=== PATIENT | female | born 1950 | race Caucasian/White ===

== ENCOUNTER 2022-05-19 11:00 | Day surgery (SDC) | payer MEDICARE ==
[2022-05-18 09:46] LABS: BASOPHILS # (AUTO) 0.1 X10'3 (0-0.2); EOSINOPHILS # (AUTO) 0.4 X10'3 (0-0.9); EOSINOPHILS % (AUTO) 5.4 % (0-6); HEMATOCRIT 40.5 % (35.0-45.0); HEMOGLOBIN 13.6 g/dl (12.0-16.0); LYMPHOCYTES # (AUTO) 1.5 X10'3 (1.1-4.8); LYMPHOCYTES % (AUTO) 19.1 % (21-51); MEAN CORPUSCULAR HEMOGLOBIN 31.1 PG (27.0-31.0); MEAN CORPUSCULAR HGB CONC 33.4 g/dL (33.0-36.5); MEAN CORPUSCULAR VOLUME 93.1 FL (78-98); MEAN PLATELET VOLUME 7.9 FL (7.4-10.4); MONOCYTES # (AUTO) 0.6 X10'3 (0-0.9); MONOCYTES % (AUTO) 7.5 % (2-12); NEUTROPHILS # (AUTO) 5.1 X10'3 (1.8-7.7); PLATELET COUNT 341 X10'3 (140-440); RED BLOOD COUNT 4.35 X10'6 (4.20-5.60); RED CELL DISTRIBUTION WIDTH 14.2 % (11.5-14.5); WHITE BLOOD COUNT 7.6 X10'3 (4.5-11.0)
[2022-05-18 09:54] LABS: ALBUMIN 3.5 G/DL (3.4-5.0); ANION GAP 8 (8-16); BLOOD UREA NITROGEN 28 MG/DL (7-18); BUN/CREATININE RATIO 23.1 (6.6-38.0); CALCIUM 9.6 MG/DL (8.5-10.1); CHLORIDE 104 MMOL/L (99-107); CREATININE 1.21 MG/DL (0.40-0.90); GLUCOSE 96 MG/DL (70-104); POTASSIUM 4.4 MMOL/L (3.5-5.1); SODIUM 138 MMOL/L (135-145); TOTAL CARBON DIOXIDE 26.1 MMOL/L (24-32); eGFR 44 ML/MIN
[~2022-05-19] VITALS: Ht 160 cm; Wt 77.2 kg
[2022-05-19] VITALS (11 sets, daily range): BP systolic 105–141; BP diastolic 53–69
[~2022-05-19 11:00] MED LIST: ASPI-611 PO; ATOR20TA PO; LOP25T PO; VALS1TAB4 PO
[2022-05-19] MEDS ORDERED: LORazepam 0.5 MG tablet PO ONE (11:20)
[2022-05-19] MEDS ORDERED: diphenhydrAMINE 25mg capsule PO ONE (11:20)
[2022-05-19] MEDS ORDERED: amiodarone 150mg/dext, iso-os 100 ML IV ONE (11:20)
[2022-05-19] MEDS ORDERED: atropine 0.1mg/ml 10ml syringe IV ONE (11:20)
[2022-05-19] MEDS ORDERED: WARF3TAB56 PO (11:52)
[2022-05-19] MEDS ORDERED: WARF1TAB83 PO (11:52)
[2022-05-19] MEDS ORDERED: CARV6.253 PO (11:55)
[2022-05-19] MEDS ORDERED: ATOR20TA66 PO (11:55)
[2022-05-19] MEDS ORDERED: AMIO200T61 PO (11:55)
[2022-05-19] MEDS ORDERED: LOSA1TAB41 PO (11:55)
[2022-05-19] MEDS ORDERED: OSC500T PO (11:56)
[2022-05-19] MEDS ORDERED: MV-M1TAB19 PO (12:03)
[2022-05-19] MEDS: morphine 10mg/ml inj. IV ONE (12:25)
[2022-05-19] MEDS: MIDAZolam 1mg/ml 10ml vial IV ONE (12:25)
== END 2022-05-19 13:35 | disposition home or self-care (01) ==
LOC: SSTAY O 11:00
PROVIDERS: ATTEND Internal Medicine Cardiovascular Disease
DX: I48.0 Paroxysmal atrial fibrillation (principal); I49.5 Sick sinus syndrome; E03.9 Hypothyroidism, unspecified; E78.5 Hyperlipidemia, unspecified; I25.10 Atherosclerotic heart disease of native coronary artery without angina pectoris; I27.20 Pulmonary hypertension, unspecified; Z79.899 Other long term (current) drug therapy; Z98.890 Other specified postprocedural states; I10 Essential (primary) hypertension
CPT/HCPCS: 36415; 80048; 85025; 85610; 92960; 93005; J2250; J2274; J7030; A4620

== ENCOUNTER 2022-09-14 05:55 | Day surgery (SDC) | payer MEDICARE ==
[2022-09-13 09:30] LABS: BASOPHILS # (AUTO) 0.1 X10'3 (0-0.2); BASOPHILS % (AUTO) 0.8 % (0-1); EOSINOPHILS # (AUTO) 0.4 X10'3 (0-0.9); EOSINOPHILS % (AUTO) 4.9 % (0-6); HEMOGLOBIN 13.4 g/dl (12.0-16.0); LYMPHOCYTES # (AUTO) 1.4 X10'3 (1.1-4.8); LYMPHOCYTES % (AUTO) 16.9 % (21-51); MEAN CORPUSCULAR HGB CONC 33.5 g/dL (33.0-36.5); MEAN CORPUSCULAR VOLUME 92.5 FL (78-98); MEAN PLATELET VOLUME 7.3 FL (7.4-10.4); MONOCYTES # (AUTO) 0.6 X10'3 (0-0.9); MONOCYTES % (AUTO) 6.9 % (2-12); NEUTROPHILS # (AUTO) 5.9 X10'3 (1.8-7.7); NEUTROPHILS % (AUTO) 70.5 % (42-75); PLATELET COUNT 347 X10'3 (140-440); RED BLOOD COUNT 4.32 X10'6 (4.20-5.60); RED CELL DISTRIBUTION WIDTH 13.6 % (11.5-14.5); WHITE BLOOD COUNT 8.4 X10'3 (4.5-11.0)
[2022-09-13 09:32] LABS: APTT 30 SECONDS (22-32)
[2022-09-13 09:43] LABS: BLOOD UREA NITROGEN 24 MG/DL (7-18); BUN/CREATININE RATIO 19.4 (10.0-20.0); CREATININE 1.24 MG/DL (0.40-0.90); eGFR 42 ML/MIN
[2022-09-13 09:57] LABS: ALBUMIN 3.6 G/DL (3.4-5.0); ANION GAP 6 (8-16); CALCIUM 9.3 MG/DL (8.5-10.1); CHLORIDE 104 MMOL/L (99-107); GLUCOSE 103 MG/DL (70-104); POTASSIUM 4.2 MMOL/L (3.5-5.1); SODIUM 139 MMOL/L (135-145); TOTAL CARBON DIOXIDE 29.5 MMOL/L (24-32)
[~2022-09-14] VITALS: Ht 160 cm; Wt 79.3 kg
[2022-09-14] VITALS (13 sets, daily range): BP systolic 118–176; BP diastolic 55–109
[~2022-09-14 05:55] MED LIST changes: +AMIO200T61 PO; -ATOR20TA PO; +ATOR20TA66 PO; +CARV6.253 PO; -LOP25T PO; +LOSA1TAB41 PO; +MV-M1TAB19 PO; +OSC500T PO; -VALS1TAB4 PO; +WARF1TAB83 PO; +WARF3TAB56 PO
[2022-09-14] MEDS ORDERED: LEVO50TA8 PO (06:20)
[2022-09-14] MEDS ORDERED: VITAMIN D3 PO (06:20)
[2022-09-14] MEDS ORDERED: ceFAZolin 1000mg inj ONE (07:41)
[2022-09-14] MEDS ORDERED: LIDOCAINE 2%/EPI 1:100,000 inj. Multi-dose 20 ML VIAL ONE (07:41)
[2022-09-14] MEDS ORDERED: fentaNYL/PF 50MCG/1 ML 2ML syringe ONE (07:41)
[2022-09-14] MEDS ORDERED: midazolam 1 mg/ML 2ml injection ONE (07:41)
[2022-09-14] MEDS: cefazolin 2gm/D5W 100mL 100 ML IV ONE (08:10)
[2022-09-14] MEDS: vancomycin/NS 1 GM ADD-VANTAGE 250 ML X 1 DOSE IV ONE (11:25)
== END 2022-09-14 15:40 | disposition home or self-care (01) ==
LOC: SSTAY O 05:55
PROVIDERS: ATTEND Internal Medicine Cardiovascular Disease
DX: I49.5 Sick sinus syndrome (principal); I48.0 Paroxysmal atrial fibrillation; I10 Essential (primary) hypertension; E78.5 Hyperlipidemia, unspecified; I27.20 Pulmonary hypertension, unspecified; Z79.899 Other long term (current) drug therapy; Z98.890 Other specified postprocedural states
CPT/HCPCS: 33208; 36415; 71046; 80048; 85025; 85610; 85730; 93005; 99152; 99153; C1786; C1898; J0690; J2250; J3010; J3370; J7030; A4565; A6449

== ENCOUNTER 2023-01-13 06:58 | Day surgery (SDC) | payer MEDICARE ==
[2023-01-12 10:14] LABS: BASOPHILS # (AUTO) 0.1 X10'3 (0-0.2); BASOPHILS % (AUTO) 0.7 % (0-1); EOSINOPHILS # (AUTO) 0.7 X10'3 (0-0.9); EOSINOPHILS % (AUTO) 7.4 % (0-6); HEMATOCRIT 39.6 % (35.0-45.0); HEMOGLOBIN 13.5 g/dl (12.0-16.0); LYMPHOCYTES # (AUTO) 1.5 X10'3 (1.1-4.8); LYMPHOCYTES % (AUTO) 17.4 % (21-51); MEAN CORPUSCULAR HEMOGLOBIN 31.4 PG (27.0-31.0); MEAN CORPUSCULAR VOLUME 92.3 FL (78-98); MONOCYTES # (AUTO) 0.7 X10'3 (0-0.9); MONOCYTES % (AUTO) 8.1 % (2-12); NEUTROPHILS # (AUTO) 5.9 X10'3 (1.8-7.7); NEUTROPHILS % (AUTO) 66.4 % (42-75); PLATELET COUNT 310 X10'3 (140-440); RED BLOOD COUNT 4.29 X10'6 (4.20-5.60); RED CELL DISTRIBUTION WIDTH 14.3 % (11.5-14.5); WHITE BLOOD COUNT 8.9 X10'3 (4.5-11.0)
[2023-01-12 10:21] LABS: ALBUMIN 3.5 G/DL (3.4-5.0); ANION GAP 9 (8-16); BLOOD UREA NITROGEN 22 MG/DL (7-18); BUN/CREATININE RATIO 17.6 (10.0-20.0); CALCIUM 9.5 MG/DL (8.5-10.1); CHLORIDE 104 MMOL/L (99-107); CREATININE 1.25 MG/DL (0.40-0.90); GLUCOSE 102 MG/DL (70-104); POTASSIUM 3.6 MMOL/L (3.5-5.1); SODIUM 142 MMOL/L (135-145); TOTAL CARBON DIOXIDE 28.9 MMOL/L (24-32); eGFR 42 ML/MIN
[2023-01-13] VITALS (14 sets, daily range): BP systolic 95–145; BP diastolic 42–78; PULSE 69–75; RESP 14–16; TEMP 97.7; O2SAT 95–99
[~2023-01-13] VITALS: Ht 157.5 cm; Wt 79.3 kg
[~2023-01-13 06:58] MED LIST changes: +AMI200T PO; -AMIO200T61 PO; +LEVO50TA8 PO; -MV-M1TAB19 PO; +VITAMIN D3 PO; -WARF3TAB56 PO
[2023-01-13] MEDS ORDERED: normal saline 1000ml 1,000 ML IV SCH (07:15)
[2023-01-13] MEDS ORDERED: diphenhydrAMINE 25mg capsule PO ONE (07:15)
[2023-01-13] MEDS ORDERED: amiodarone 150mg/dext, iso-os 100 ML IV ONE (07:15)
[2023-01-13] MEDS ORDERED: LORazepam 0.5 MG tablet PO ONE (07:15)
[2023-01-13] MEDS ORDERED: atropine 0.1mg/ml 10ml syringe IV ONE (07:15)
[2023-01-13] MEDS ORDERED: morphine 10mg/ml inj. IV ONE (07:15)
[2023-01-13] MEDS ORDERED: MIDAZolam 1mg/ml 10ml vial IV ONE (07:15)
== END 2023-01-13 10:10 | disposition home or self-care (01) ==
LOC: SSTAY O 06:58
PROVIDERS: ATTEND Internal Medicine Cardiovascular Disease
DX: I48.0 Paroxysmal atrial fibrillation (principal); I10 Essential (primary) hypertension; E78.5 Hyperlipidemia, unspecified; I25.10 Atherosclerotic heart disease of native coronary artery without angina pectoris; I49.5 Sick sinus syndrome; E03.9 Hypothyroidism, unspecified; I27.29 Other secondary pulmonary hypertension; Z95.1 Presence of aortocoronary bypass graft; Z95.0 Presence of cardiac pacemaker; Z98.890 Other specified postprocedural states; Z98.51 Tubal ligation status; Z79.01 Long term (current) use of anticoagulants; Z79.899 Other long term (current) drug therapy; Z72.89 Other problems related to lifestyle
CPT/HCPCS: 36415; 80048; 85025; 85610; 92960; 93005; J2250; J2274; J7030; A4620

== ENCOUNTER 2024-04-25 07:52 | Day surgery (SDC) | payer MEDICARE ==
[2024-04-24 09:15] LABS: BASOPHILS # (AUTO) 0.1 X10'3 (0-0.2); BASOPHILS % (AUTO) 1.2 % (0-1); EOSINOPHILS # (AUTO) 0.4 X10'3 (0-0.9); EOSINOPHILS % (AUTO) 4.6 % (0-6); HEMATOCRIT 40.7 % (35.0-45.0); HEMOGLOBIN 13.8 g/dl (12.0-16.0); LYMPHOCYTES % (AUTO) 12.5 % (21-51); MEAN CORPUSCULAR HEMOGLOBIN 30.7 PG (27.0-31.0); MEAN CORPUSCULAR VOLUME 90.5 FL (78-98); MEAN PLATELET VOLUME 7.6 FL (7.4-10.4); MONOCYTES # (AUTO) 0.7 X10'3 (0-0.9); MONOCYTES % (AUTO) 8.8 % (2-12); NEUTROPHILS % (AUTO) 72.9 % (42-75); PLATELET COUNT 390 X10'3 (140-440); RED CELL DISTRIBUTION WIDTH 16.3 % (11.5-14.5); WHITE BLOOD COUNT 8.3 X10'3 (4.5-11.0)
[2024-04-24 09:28] LABS: ALBUMIN 3.5 G/DL (3.4-5.0); ANION GAP 8 (8-16); BLOOD UREA NITROGEN 24 MG/DL (7-18); BUN/CREATININE RATIO 15.8 (10.0-20.0); CALCIUM 9.4 MG/DL (8.5-10.1); CHLORIDE 105 MMOL/L (99-107); CREATININE 1.52 MG/DL (0.40-0.90); GLUCOSE 117 MG/DL (70-104); POTASSIUM 3.9 MMOL/L (3.5-5.1); SODIUM 142 MMOL/L (135-145); TOTAL CARBON DIOXIDE 28.6 MMOL/L (24-32); eGFR 33 ML/MIN
[2024-04-24 09:40] LABS: INR 2.4 INR; PROTHROMBIN TIME 23.3 SECONDS (9.0-12.0)
[~2024-04-25] VITALS: Ht 160 cm; Wt 88.9 kg
[2024-04-25] VITALS (9 sets, daily range): BP systolic 90–146; BP diastolic 44–71; PULSE 70–81; RESP 12–19; TEMP 98.6; O2SAT 96–98
[2024-04-25] MEDS ORDERED: atropine 0.1mg/ml 10ml syringe IV ONE (08:20)
[2024-04-25] MEDS ORDERED: diphenhydrAMINE 25mg capsule PO ONE (08:20)
[2024-04-25] MEDS ORDERED: amiodarone 150mg/dext, iso-os 100 ML IV ONE (08:20)
[2024-04-25] MEDS ORDERED: LORazepam 0.5 MG tablet PO ONE (08:20)
[2024-04-25] MEDS: MIDAZolam 1mg/ml 10ml vial IV ONE (10:55)
[2024-04-25] MEDS: normal saline 1000ml 1,000 ML IV SCH (10:55)
[2024-04-25] MEDS: morphine 10mg/ml inj. IV ONE (10:56)
== END 2024-04-25 12:05 | disposition home or self-care (01) ==
LOC: SSTAY O 07:52
PROVIDERS: ATTEND Internal Medicine Cardiovascular Disease
DX: I48.19 Other persistent atrial fibrillation (principal); I48.0 Paroxysmal atrial fibrillation; I10 Essential (primary) hypertension; I25.10 Atherosclerotic heart disease of native coronary artery without angina pectoris; E78.5 Hyperlipidemia, unspecified; E03.9 Hypothyroidism, unspecified; Z79.01 Long term (current) use of anticoagulants; Z79.82 Long term (current) use of aspirin; Z79.890 Hormone replacement therapy; Z79.899 Other long term (current) drug therapy; Z90.89 Acquired absence of other organs; Z95.0 Presence of cardiac pacemaker; Z95.1 Presence of aortocoronary bypass graft; Z98.51 Tubal ligation status; Z98.890 Other specified postprocedural states
CPT/HCPCS: 36415; 80048; 85025; 85610; 92960; 93005; A4620; J2250; J2270; J7030; J2274